=== PATIENT | male | born 1980 ===

== ENCOUNTER → 2023-08-21 15:37 | Outpatient (CLI) | payer OTHER, SELFPAY ==
--- NOTE | ~2023-08-21 | MR_ITS ---
MRI of the right knee Clinical history: Pain Technique: Coronal proton density and proton density-weighted images, sagittal proton-density and T2 fat-sat images, and axial proton-density fat-saturated images were acquired. Findings: Anterior and posterior cruciate ligaments are intact. Medial collateral ligament and the la teral collateral ligament complex are intact. Popliteus tendon is intact. There is horizontal tear of the posterior horn and body of the medial meniscus. No lateral meniscal t ear identified. There is mild diffuse chondral thinning of the medial compartment, with subchondral marrow edema at t he medial joint line. Lateral compartment articular cartilage is well preserved. Patellofemoral efraín rtment articular cartilage is well preserved. Extensor mechanism is intact. There is small joint effusion, with [id number]-ti-ateijatt Hui's cyst. Impression: Horizontal tear of the posterior horn and body of the medial meniscus. Mild diffuse chondral thinning of the medial compartment. Small joint effusion, with small to moderate Hui's cyst. Reviewed, dictated and finalized at location . Impression: Horizontal tear of the posterior horn and body of the medial meniscus. Mild diffuse chondral thinning of the medial compartment. Small joint effusion, with small to moderate Hui's cyst.
== END ==
PROVIDERS: PCP Family Medicine Sports Medicine; Visit Provider Family Medicine Sports Medicine
DX: S83.241A Other tear of medial meniscus, current injury, right knee, initial encounter (principal); X58.XXXA Exposure to other specified factors, initial encounter; M25.461 Effusion, right knee
CPT/HCPCS: 73721